=== PATIENT | male | born 1960 | race Caucasian/White ===

== ENCOUNTER 2018-02-11 08:03 | Emergency (ER) | payer MEDICAID, OTHER ==
[2018-02-11 09:12] LABS: ADD MAN DIFF? NO
[2018-02-11 09:30] LABS: ALANINE AMINOTRANSFERASE 30 IU/L (13-69); ALBUMIN 2.4 g/dl (3.3-4.9); ALBUMIN/GLOBULIN RATIO 0.57; ALKALINE PHOSPHATASE 213 IU/L (42-121); ANION GAP 8 (5-13); ASPARTATE AMINO TRANSFERASE 49 IU/L (15-46); BILIRUBIN,INDIRECT 0.6 mg/dl (0-1.1); BILIRUBIN,TOTAL 0.6 mg/dl (0.2-1.3); BLOOD UREA NITROGEN 10 mg/dl (7-20); CALCIUM 7.5 mg/dl (8.4-10.2); CARBON DIOXIDE 30 mmol/L (21-31); CHLORIDE 103 mmol/L (97-110); CREATININE 1.04 mg/dl (0.61-1.24); Estimated GFR > 60 mL/min (>60); GLUCOSE 129 mg/dl (70-220); LIPASE 171 U/L (23-300); SODIUM 141 mmol/L (135-144); TOTAL PROTEIN 6.6 g/dl (6.1-8.1)
[2018-02-11 09:32] LABS: WHITE BLOOD COUNT 4.3 10^3/ul (4.8-10.8)
[2018-02-11 09:32] LABS: BASOPHILS % 0.9 % (0.0-2.0); EOSINOPHILS # 0.1 10^3/ul (0.0-0.5); EOSINOPHILS % 3.3 % (0.0-7.0); HEMATOCRIT 29.9 % (42.0-52.0); HEMOGLOBIN 9.5 g/dl (14.0-18.0); LYMPHOCYTES # 1.6 10^3/ul (0.8-2.9); LYMPHOCYTES % 37.1 % (15.0-51.0); MEAN CORPUSCULAR HGB CONC 31.8 g/dl (32.0-37.0); MEAN CORPUSCULAR VOLUME 81.9 fl (82.0-101.0); MEAN PLATELET VOLUME 10.6 fl (7.4-10.4); MONOCYTE # 0.5 10^3/ul (0.3-0.9); NEUTROPHILS % 46.7 % (39.0-77.0); PLATELET COUNT 163 10^3/UL (140-415); RED BLOOD COUNT 3.65 10^6/ul (4.70-6.10); RED CELL DISTRIBUTION WIDTH 17.8 % (11.5-14.5)
[2018-02-11 09:44] LABS: POTASSIUM 2.9 mmol/L (3.5-5.1)
[2018-02-11 09:53] LABS: INR 1.36; PARTIAL THROMBOPLASTIN TIME 33.3 Sec (23.0-35.0); PT RATIO 1.3
[2018-02-11 11:15] LABS: MAGNESIUM 1.8 mg/dl (1.7-2.5)
[2018-02-11 11:41] LABS: OCCULT BLOOD STOOL NEGATIVE (NEGATIVE)
[2018-02-11] MEDS: POTASSIUM CHLORIDE 20 MEQ POWDER FOR ORAL SOLN PO (13:00)
[2018-02-11] MEDS: LIDOCAINE 1% (MPF) 5 ML VIAL (13:29)
[2018-02-11 14:21] LABS: FLD MN% 79.2 %; FLD PMN% 20.8 %; FLD RBC 0 /uL; FLD WBC 187 /cmm
[2018-02-11 14:38] LABS: FLUID AMYLASE < 30 U/L; FLUID TYPE ASCITES FLUID
[2018-02-11 14:39] LABS: FLUID GLUCOSE 103 mg/dl; FLUID LD 192 U/L; FLUID TOTAL PROTEIN < 2.0 g/dl; FLUID TYPE ASCITES FLUID; FLUID TYPE ASCITIES FLUID
[2018-02-11 14:45] LABS: FLD CLARITY SLIGHTLY HAZY; FLD COLOR YELLOW
[2018-02-11 14:45] LABS: FLD TYPE ASCITES
== END 2018-02-11 17:04 | disposition left against medical advice (07) ==
LOC: E/R 08:03
DX: R18.8 Other ascites (principal); E87.6 Hypokalemia; Z87.891 Personal history of nicotine dependence
CPT/HCPCS: 36415; 71045; 80053; 82150; 82270; 82945; 83615; 83690; 83735; 84157; 85025; 85610; 85730; 87070; 87075; 87102; 87116; 89051; 93005; 99285-25

== ENCOUNTER 2018-03-25 14:39 | Emergency (ER) | payer MEDICAID ==
[2018-03-25 16:23] LABS: ADD MAN DIFF? NO
[2018-03-25 16:26] LABS: WHITE BLOOD COUNT 5.6 10^3/ul (4.8-10.8)
[2018-03-25 16:26] LABS: BASOPHILS % 0.5 % (0.0-2.0); EOSINOPHILS # 0.2 10^3/ul (0.0-0.5); EOSINOPHILS % 4.3 % (0.0-7.0); HEMOGLOBIN 8.7 g/dl (14.0-18.0); LYMPHOCYTES # 1.8 10^3/ul (0.8-2.9); LYMPHOCYTES % 32.9 % (15.0-51.0); MEAN CORPUSCULAR HEMOGLOBIN 27.2 pg (29.0-33.0); MEAN CORPUSCULAR HGB CONC 32.2 g/dl (32.0-37.0); MEAN CORPUSCULAR VOLUME 84.4 fl (82.0-101.0); MEAN PLATELET VOLUME 9.9 fl (7.4-10.4); MONOCYTE # 0.7 10^3/ul (0.3-0.9); MONOCYTES % 13.3 % (0.0-11.0); NEUTROPHIL # 2.7 10^3/ul (1.6-7.5); NEUTROPHILS % 48.6 % (39.0-77.0); PLATELET COUNT 166 10^3/UL (140-415); RED CELL DISTRIBUTION WIDTH 17.9 % (11.5-14.5)
[2018-03-25 16:44] LABS: ADD UMIC YES; UR ASCORBIC ACID 40 mg/dL (NEGATIVE); UR BILIRUBIN (Dip) NEGATIVE (NEGATIVE); UR BLOOD (Dip) NEGATIVE (NEGATIVE); UR CLARITY SLIGHTLY CLOUDY (CLEAR); UR COLOR YELLOW (YELLOW); UR GLUCOSE (Dip) NEGATIVE (NEGATIVE); UR KETONES (Dip) NEGATIVE (NEGATIVE); UR LEUKOCYTE ESTERASE (Dip) TRACE Leu/ul (NEGATIVE); UR MUCUS FEW /HPF (NONE SEEN); UR NITRITE (Dip) NEGATIVE (NEGATIVE); UR RBC 1 /HPF (0-5); UR SPECIFIC GRAVITY (Dip) 1.023 (1.003-1.030); UR TOTAL PROTEIN (Dip) NEGATIVE (NEGATIVE); UR UROBILINOGEN (Dip) NEGATIVE (NEGATIVE); UR WBC 4 /HPF (0-5)
[2018-03-25 16:48] LABS: ALANINE AMINOTRANSFERASE 46 IU/L (13-69); ALBUMIN 2.3 g/dl (3.3-4.9); ALBUMIN/GLOBULIN RATIO 0.67; ALKALINE PHOSPHATASE 250 IU/L (42-121); ANION GAP 9 (5-13); ASPARTATE AMINO TRANSFERASE 86 IU/L (15-46); BILIRUBIN,INDIRECT 0.5 mg/dl (0-1.1); BILIRUBIN,TOTAL 0.5 mg/dl (0.2-1.3); BLOOD UREA NITROGEN 15 mg/dl (7-20); CALCIUM 7.5 mg/dl (8.4-10.2); CARBON DIOXIDE 20 mmol/L (21-31); CHLORIDE 109 mmol/L (97-110); CREATININE 1.16 mg/dl (0.61-1.24); Estimated GFR > 60 mL/min (>60); GLUCOSE 115 mg/dl (70-220); INR 1.33; LIPASE 141 U/L (23-300); PARTIAL THROMBOPLASTIN TIME 30.6 Sec (23.0-35.0); POTASSIUM 4.1 mmol/L (3.5-5.1); PROTIME 16.7 Sec (11.9-14.9); PT RATIO 1.3; SODIUM 138 mmol/L (135-144); TOTAL PROTEIN 5.7 g/dl (6.1-8.1)
== END 2018-03-25 16:45 | disposition home or self-care (01) ==
LOC: E/R 14:39
DX: R18.8 Other ascites (principal); R10.84 Generalized abdominal pain; I10 Essential (primary) hypertension; Z87.891 Personal history of nicotine dependence
CPT/HCPCS: 80053; 81001; 83690; 85025; 85610; 85730; 99283

== ENCOUNTER 2018-03-26 08:35 | Emergency (ER) | payer MEDICAID ==
[2018-03-26] MEDS: HYDROCODONE/APAP (10/325) TAB PO (11:43)
== END 2018-03-26 15:39 | disposition home or self-care (01) ==
LOC: E/R 08:35
DX: R18.8 Other ascites (principal); I10 Essential (primary) hypertension; Z87.891 Personal history of nicotine dependence
CPT/HCPCS: 99285-25; Z7502

== ENCOUNTER 2018-04-09 10:58 | Emergency (ER) | payer MEDICAID ==
[2018-04-09] MEDS ORDERED: LIDOCAINE 1%/EPI (1:100,000) (MDV) 20 ML (14:21)
== END 2018-04-09 13:19 | disposition home or self-care (01) ==
LOC: E/R 10:58
DX: K70.31 Alcoholic cirrhosis of liver with ascites (principal); I10 Essential (primary) hypertension; F17.210 Nicotine dependence, cigarettes, uncomplicated
CPT/HCPCS: 99285-25; Z7502

== ENCOUNTER 2018-04-11 12:34 | Emergency (ER) | payer MEDICAID ==
[2018-04-11] MEDS: LIDOCAINE 1% (MPF) 5 ML VIAL (17:02)
[2018-04-11 17:47] LABS: FLD MN% 89.6 %; FLD PMN% 10.4 %; FLD RBC 16000 /uL; FLD WBC 259 /cmm
[2018-04-11 18:04] LABS: FLD TYPE PARACENTHESIS
[2018-04-11 18:04] LABS: FLD CLARITY CLOUDY
== END 2018-04-11 18:20 | disposition home or self-care (01) ==
LOC: E/R 12:34
DX: R10.10 Upper abdominal pain, unspecified (principal); I10 Essential (primary) hypertension; Z87.891 Personal history of nicotine dependence
CPT/HCPCS: 87070; 87102; 87116; 89051; 99284-25

== ENCOUNTER 2018-04-16 11:24 | Emergency (ER) | payer MEDICAID ==
[2018-04-16] MEDS: LIDOCAINE 1% (MPF) 5 ML VIAL (15:51)
== END 2018-04-16 16:37 | disposition home or self-care (01) ==
LOC: E/R 11:24
DX: K70.31 Alcoholic cirrhosis of liver with ascites (principal); I10 Essential (primary) hypertension; Z87.891 Personal history of nicotine dependence
CPT/HCPCS: 99285-25; Z7502

== ENCOUNTER 2018-04-20 11:48 | Emergency (ER) | payer MEDICAID ==
[2018-04-20] MEDS ORDERED: LIDOCAINE 1% (MPF) 5 ML VIAL (13:30)
== END 2018-04-20 14:01 | disposition home or self-care (01) ==
LOC: FTE 11:48
DX: R18.8 Other ascites (principal); I10 Essential (primary) hypertension; Z87.891 Personal history of nicotine dependence
CPT/HCPCS: 99285-25; Z7502

== ENCOUNTER 2018-04-24 08:43 | Emergency (ER) | payer MEDICAID ==
[2018-04-24] MEDS: LIDOCAINE 1% (MPF) 5 ML VIAL (10:29)
== END 2018-04-24 11:13 | disposition home or self-care (01) ==
LOC: E/R 08:43
DX: R18.8 Other ascites (principal); F17.210 Nicotine dependence, cigarettes, uncomplicated
CPT/HCPCS: 99285-25; Z7502

== ENCOUNTER 2018-04-27 08:06 | Emergency (ER) | payer MEDICAID ==
[2018-04-27] MEDS: LIDOCAINE 1% (MPF) 5 ML VIAL (09:52)
== END 2018-04-27 10:41 | disposition home or self-care (01) ==
LOC: E/R 08:06
DX: R18.8 Other ascites (principal); R40.2142 Coma scale, eyes open, spontaneous, at arrival to emergency department; R40.2362 Coma scale, best motor response, obeys commands, at arrival to emergency department
CPT/HCPCS: 49083; 99285-25

== ENCOUNTER 2018-04-29 09:09 | Emergency (ER) | payer MEDICAID ==
[2018-04-29] MEDS: LIDOCAINE 1% (MPF) 5 ML VIAL (12:21)
== END 2018-04-29 15:48 | disposition left against medical advice (07) ==
LOC: E/R 09:09
DX: R18.8 Other ascites (principal); R40.2252 Coma scale, best verbal response, oriented, at arrival to emergency department; R40.2362 Coma scale, best motor response, obeys commands, at arrival to emergency department; R40.2142 Coma scale, eyes open, spontaneous, at arrival to emergency department
CPT/HCPCS: 49083; 99285-25

== ENCOUNTER 2018-05-02 10:13 | Emergency (ER) | payer MEDICAID | END 2018-05-02 13:00 | disposition left against medical advice (07) | LOC: FTE 10:13 | DX: Z48.01 Encounter for change or removal of surgical wound dressing (principal) | CPT/HCPCS: 99281; Z7502 ==

== ENCOUNTER 2018-05-04 12:07 | Emergency (ER) | payer MEDICAID ==
[2018-05-04] MEDS: LIDOCAINE 1% (MPF) 5 ML VIAL (15:12)
== END 2018-05-04 15:43 | disposition home or self-care (01) ==
LOC: E/R 15:43
DX: K70.31 Alcoholic cirrhosis of liver with ascites (principal); R40.2252 Coma scale, best verbal response, oriented, at arrival to emergency department; R40.2362 Coma scale, best motor response, obeys commands, at arrival to emergency department; R40.2142 Coma scale, eyes open, spontaneous, at arrival to emergency department
CPT/HCPCS: 49083; 99285-25

== ENCOUNTER 2018-05-08 12:42 | Emergency (ER) | payer MEDICAID ==
[2018-05-08 14:52] LABS: ADD MAN DIFF? NO
[2018-05-08 14:57] LABS: WHITE BLOOD COUNT 5.9 10^3/ul (4.8-10.8)
[2018-05-08 14:57] LABS: BASOPHIL # 0.1 10^3/ul (0.0-0.1); BASOPHILS % 0.9 % (0.0-2.0); EOSINOPHILS # 0.1 10^3/ul (0.0-0.5); EOSINOPHILS % 1.2 % (0.0-7.0); HEMATOCRIT 33.9 % (42.0-52.0); LYMPHOCYTES # 1.5 10^3/ul (0.8-2.9); LYMPHOCYTES % 25.3 % (15.0-51.0); MEAN CORPUSCULAR HEMOGLOBIN 25.5 pg (29.0-33.0); MEAN CORPUSCULAR HGB CONC 32.4 g/dl (32.0-37.0); MEAN CORPUSCULAR VOLUME 78.7 fl (82.0-101.0); MEAN PLATELET VOLUME 9.4 fl (7.4-10.4); MONOCYTE # 0.9 10^3/ul (0.3-0.9); MONOCYTES % 14.7 % (0.0-11.0); NEUTROPHIL # 3.4 10^3/ul (1.6-7.5); NEUTROPHILS % 57.6 % (39.0-77.0); PLATELET COUNT 174 10^3/UL (140-415); RED BLOOD COUNT 4.31 10^6/ul (4.70-6.10); RED CELL DISTRIBUTION WIDTH 19.5 % (11.5-14.5)
[2018-05-08 15:15] LABS: ALANINE AMINOTRANSFERASE 30 IU/L (13-69); ALBUMIN 3.3 g/dl (3.3-4.9); ALBUMIN/GLOBULIN RATIO 0.94; ALKALINE PHOSPHATASE 291 IU/L (42-121); ANION GAP 11 (5-13); ASPARTATE AMINO TRANSFERASE 50 IU/L (15-46); BILIRUBIN,INDIRECT 0.2 mg/dl (0-1.1); BILIRUBIN,TOTAL 0.2 mg/dl (0.2-1.3); BLOOD UREA NITROGEN 34 mg/dl (7-20); CALCIUM 8.1 mg/dl (8.4-10.2); CARBON DIOXIDE 19 mmol/L (21-31); CHLORIDE 100 mmol/L (97-110); CREATININE 1.49 mg/dl (0.61-1.24); Estimated GFR 49 mL/min (>60); GLUCOSE 143 mg/dl (70-220); LIPASE 288 U/L (23-300); POTASSIUM 5.1 mmol/L (3.5-5.1); SODIUM 130 mmol/L (135-144); TOTAL PROTEIN 6.8 g/dl (6.1-8.1)
[2018-05-08 15:16] LABS: INR 1.11; PROTIME 14.4 Sec (11.9-14.9); PT RATIO 1.1
[2018-05-08 15:17] LABS: PARTIAL THROMBOPLASTIN TIME 29.9 Sec (23.0-35.0)
[2018-05-08] MEDS: LIDOCAINE 1% (MPF) 5 ML VIAL (16:22)
== END 2018-05-08 16:28 | disposition home or self-care (01) ==
LOC: E/R 12:42
DX: R10.84 Generalized abdominal pain (principal); R18.8 Other ascites
CPT/HCPCS: 49083; 80053; 83690; 85025; 85610; 85730; 99285-25

== ENCOUNTER 2018-05-10 10:05 | Emergency (ER) | payer MEDICAID | END 2018-05-10 12:42 | disposition home or self-care (01) | LOC: E/R 10:05 | DX: R18.8 Other ascites (principal) | CPT/HCPCS: 76705; 99284-25 ==

== ENCOUNTER 2018-05-15 08:14 | Emergency (ER) | payer MEDICAID ==
[2018-05-15] MEDS: LIDOCAINE 1% (MPF) 5 ML VIAL (11:13)
== END 2018-05-15 11:58 | disposition home or self-care (01) ==
LOC: E/R 08:14
DX: R18.8 Other ascites (principal)
CPT/HCPCS: 49083; 99285-25

== ENCOUNTER 2018-05-19 08:43 | Emergency (ER) | payer MEDICAID ==
[2018-05-19] MEDS: LIDOCAINE 1% (MPF) 5 ML VIAL (10:03)
== END 2018-05-19 10:44 | disposition home or self-care (01) ==
LOC: E/R 08:43
DX: R18.8 Other ascites (principal)
CPT/HCPCS: 49083; 99285-25

== ENCOUNTER 2018-05-21 07:14 | Emergency (ER) | payer MEDICAID ==
[2018-05-21] MEDS: LIDOCAINE 1% (MPF) 5 ML VIAL (14:47)
== END 2018-05-21 15:03 | disposition home or self-care (01) ==
LOC: E/R 07:14
DX: K70.31 Alcoholic cirrhosis of liver with ascites (principal)
CPT/HCPCS: 49083; 99285-25

== ENCOUNTER 2018-05-24 10:03 | Emergency (ER) | payer MEDICAID | END 2018-05-24 13:06 | disposition home or self-care (01) | LOC: E/R 10:03 | DX: R18.8 Other ascites (principal) | CPT/HCPCS: 49083; 99285-25 ==

== ENCOUNTER 2018-05-27 12:33 | Emergency (ER) | payer MEDICAID | END 2018-05-27 17:48 | disposition left against medical advice (07) | LOC: E/R 12:33 | DX: R18.8 Other ascites (principal) | CPT/HCPCS: 99282; Z7502 ==

== ENCOUNTER 2018-06-05 10:40 | Emergency (ER) | payer MEDICAID ==
[2018-06-05] MEDS: LIDOCAINE 1% (MPF) 5 ML VIAL (12:31)
== END 2018-06-05 13:00 | disposition home or self-care (01) ==
LOC: E/R 10:40
DX: R18.8 Other ascites (principal)
CPT/HCPCS: 99285-25; Z7610

== ENCOUNTER 2018-06-26 09:17 | Emergency (ER) | payer MEDICAID ==
[2018-06-26 13:43] LABS: ADD MAN DIFF? NO
[2018-06-26 13:47] LABS: WHITE BLOOD COUNT 5.5 10^3/ul (4.8-10.8)
[2018-06-26 13:47] LABS: BASOPHILS % 0.5 % (0.0-2.0); EOSINOPHILS # 0.1 10^3/ul (0.0-0.5); EOSINOPHILS % 1.1 % (0.0-7.0); HEMATOCRIT 35.9 % (42.0-52.0); HEMOGLOBIN 11.2 g/dl (14.0-18.0); LYMPHOCYTES # 1.2 10^3/ul (0.8-2.9); LYMPHOCYTES % 22.5 % (15.0-51.0); MEAN CORPUSCULAR HGB CONC 31.2 g/dl (32.0-37.0); MEAN PLATELET VOLUME 9.6 fl (7.4-10.4); MONOCYTE # 0.7 10^3/ul (0.3-0.9); MONOCYTES % 12.4 % (0.0-11.0); NEUTROPHIL # 3.5 10^3/ul (1.6-7.5); NEUTROPHILS % 63.3 % (39.0-77.0); PLATELET COUNT 188 10^3/UL (140-415); RED BLOOD COUNT 4.66 10^6/ul (4.70-6.10); RED CELL DISTRIBUTION WIDTH 19.3 % (11.5-14.5)
[2018-06-26 14:04] LABS: ALANINE AMINOTRANSFERASE 24 IU/L (13-69); ALBUMIN 2.7 g/dl (3.3-4.9); ALBUMIN/GLOBULIN RATIO 0.72; ALKALINE PHOSPHATASE 291 IU/L (42-121); ANION GAP 9 (5-13); ASPARTATE AMINO TRANSFERASE 41 IU/L (15-46); BILIRUBIN,INDIRECT 0.3 mg/dl (0-1.1); BILIRUBIN,TOTAL 0.3 mg/dl (0.2-1.3); BLOOD UREA NITROGEN 33 mg/dl (7-20); CALCIUM 8.3 mg/dl (8.4-10.2); CARBON DIOXIDE 22 mmol/L (21-31); CHLORIDE 99 mmol/L (97-110); CREATININE 1.35 mg/dl (0.61-1.24); Estimated GFR 54 mL/min (>60); GLUCOSE 136 mg/dl (70-220); INR 1.07; POTASSIUM 5.2 mmol/L (3.5-5.1); PT RATIO 1.1; SODIUM 130 mmol/L (135-144); TOTAL PROTEIN 6.4 g/dl (6.1-8.1)
[2018-06-26 14:05] LABS: PARTIAL THROMBOPLASTIN TIME 29.7 Sec (23.0-35.0)
[2018-06-26] MEDS: LIDOCAINE 1% (MPF) 5 ML VIAL (16:03)
== END 2018-06-26 16:11 | disposition home or self-care (01) ==
LOC: E/R 09:17
DX: R18.8 Other ascites (principal)
CPT/HCPCS: 80053; 85025; 85610; 85730; 99285-25

== ENCOUNTER 2018-07-02 08:16 | Emergency (ER) | payer MEDICAID ==
[2018-07-02] MEDS: LIDOCAINE 1% (MPF) 5 ML VIAL (12:19)
== END 2018-07-02 12:25 | disposition home or self-care (01) ==
LOC: E/R 08:16
DX: K70.31 Alcoholic cirrhosis of liver with ascites (principal)
CPT/HCPCS: 99285-25; Z7502

== ENCOUNTER 2018-07-09 09:42 | Emergency (ER) | payer MEDICAID ==
[2018-07-09] MEDS ORDERED: LIDOCAINE 1% (MPF) 5 ML VIAL (14:49)
== END 2018-07-09 14:50 | disposition left against medical advice (07) ==
LOC: E/R 09:42
DX: K70.31 Alcoholic cirrhosis of liver with ascites (principal)
CPT/HCPCS: 99285-25; Z7502

== ENCOUNTER 2018-07-16 08:48 | Emergency (ER) | payer MEDICAID | END 2018-07-16 11:16 | disposition home or self-care (01) | LOC: E/R 08:48 | DX: K70.31 Alcoholic cirrhosis of liver with ascites (principal); K42.9 Umbilical hernia without obstruction or gangrene; Y84.4 Aspiration of fluid as the cause of abnormal reaction of the patient, or of later complication, without mention of misadventure at the time of the procedure; Z87.891 Personal history of nicotine dependence | CPT/HCPCS: 99285-25; Z7502 ==

== ENCOUNTER 2018-07-23 09:21 | Emergency (ER) | payer MEDICAID ==
[2018-07-23 10:18] LABS: ADD MAN DIFF? NO
[2018-07-23 10:19] LABS: WHITE BLOOD COUNT 5.3 10^3/ul (4.8-10.8)
[2018-07-23 10:19] LABS: BASOPHILS % 0.6 % (0.0-2.0); EOSINOPHILS # 0.1 10^3/ul (0.0-0.5); EOSINOPHILS % 1.5 % (0.0-7.0); HEMATOCRIT 33.7 % (42.0-52.0); HEMOGLOBIN 10.7 g/dl (14.0-18.0); LYMPHOCYTES # 1.3 10^3/ul (0.8-2.9); LYMPHOCYTES % 24.4 % (15.0-51.0); MEAN CORPUSCULAR HEMOGLOBIN 25.3 pg (29.0-33.0); MEAN CORPUSCULAR HGB CONC 31.8 g/dl (32.0-37.0); MEAN CORPUSCULAR VOLUME 79.7 fl (82.0-101.0); MEAN PLATELET VOLUME 9.6 fl (7.4-10.4); MONOCYTE # 0.9 10^3/ul (0.3-0.9); MONOCYTES % 16.5 % (0.0-11.0); NEUTROPHILS % 56.8 % (39.0-77.0); PLATELET COUNT 154 10^3/UL (140-415); RED BLOOD COUNT 4.23 10^6/ul (4.70-6.10); RED CELL DISTRIBUTION WIDTH 20.6 % (11.5-14.5)
[2018-07-23 10:39] LABS: INR 1.17; PT RATIO 1.2
[2018-07-23 10:40] LABS: PARTIAL THROMBOPLASTIN TIME 30.9 Sec (23.0-35.0)
[2018-07-23] MEDS: LIDOCAINE 1% (MPF) 5 ML VIAL (12:05)
== END 2018-07-23 12:19 | disposition home or self-care (01) ==
LOC: E/R 09:21
DX: K74.60 Unspecified cirrhosis of liver (principal); R18.8 Other ascites; Z87.891 Personal history of nicotine dependence
CPT/HCPCS: 36415; 85025; 85610; 85730; 99285-25

== ENCOUNTER 2018-08-05 08:43 | Emergency (ER) | payer MEDICAID ==
[2018-08-05] MEDS: LIDOCAINE 1% (MPF) 5 ML VIAL (12:59)
== END 2018-08-05 14:33 | disposition home or self-care (01) ==
LOC: E/R 08:43
DX: R18.8 Other ascites (principal); Z87.891 Personal history of nicotine dependence
CPT/HCPCS: 99285-25; Z7502

== ENCOUNTER 2018-08-15 09:53 | Emergency (ER) | payer MEDICAID ==
[2018-08-15] MEDS: LIDOCAINE 1% (MPF) 5 ML VIAL (12:31)
== END 2018-08-15 13:25 | disposition left against medical advice (07) ==
LOC: E/R 13:25
DX: R18.8 Other ascites (principal); Z87.891 Personal history of nicotine dependence
CPT/HCPCS: 99285-25; Z7502

== ENCOUNTER 2018-08-26 09:27 | Emergency (ER) | payer MEDICAID ==
[2018-08-26] MEDS: LIDOCAINE 1% (MPF) 5 ML VIAL (14:22)
== END 2018-08-26 12:25 | disposition home or self-care (01) ==
LOC: E/R 09:27
DX: K70.31 Alcoholic cirrhosis of liver with ascites (principal); Z87.891 Personal history of nicotine dependence
CPT/HCPCS: 99285-25; Z7502

== ENCOUNTER 2018-10-01 09:44 | Emergency (ER) | payer MEDICAID ==
[2018-10-01 12:08] LABS: ADD MAN DIFF? NO
[2018-10-01 12:16] LABS: BASOPHILS % 0.8 % (0.0-2.0); EOSINOPHILS # 0.1 10^3/ul (0.0-0.5); EOSINOPHILS % 1.9 % (0.0-7.0); HEMATOCRIT 39.2 % (42.0-52.0); HEMOGLOBIN 12.5 g/dl (14.0-18.0); LYMPHOCYTES # 1.8 10^3/ul (0.8-2.9); LYMPHOCYTES % 33.7 % (15.0-51.0); MEAN CORPUSCULAR HEMOGLOBIN 27.2 pg (29.0-33.0); MEAN CORPUSCULAR HGB CONC 31.9 g/dl (32.0-37.0); MEAN CORPUSCULAR VOLUME 85.2 fl (82.0-101.0); MEAN PLATELET VOLUME 10.2 fl (7.4-10.4); MONOCYTE # 0.6 10^3/ul (0.3-0.9); MONOCYTES % 11.9 % (0.0-11.0); NEUTROPHIL # 2.7 10^3/ul (1.6-7.5); NEUTROPHILS % 51.5 % (39.0-77.0); PLATELET COUNT 207 10^3/UL (140-415); RED CELL DISTRIBUTION WIDTH 16.4 % (11.5-14.5)
[2018-10-01 12:16] LABS: WHITE BLOOD COUNT 5.3 10^3/ul (4.8-10.8)
[2018-10-01 12:27] LABS: ALANINE AMINOTRANSFERASE 20 IU/L (13-69); ALBUMIN 3.1 g/dl (3.3-4.9); ALBUMIN/GLOBULIN RATIO 0.88; ALKALINE PHOSPHATASE 183 IU/L (42-121); ANION GAP 5 (5-13); ASPARTATE AMINO TRANSFERASE 39 IU/L (15-46); BILIRUBIN,INDIRECT 0.7 mg/dl (0-1.1); BILIRUBIN,TOTAL 0.7 mg/dl (0.2-1.3); BLOOD UREA NITROGEN 17 mg/dl (7-20); CALCIUM 8.5 mg/dl (8.4-10.2); CARBON DIOXIDE 27 mmol/L (21-31); CHLORIDE 104 mmol/L (97-110); CREATININE 1.16 mg/dl (0.61-1.24); Estimated GFR > 60 mL/min (>60); GLUCOSE 97 mg/dl (70-220); POTASSIUM 3.8 mmol/L (3.5-5.1); SODIUM 136 mmol/L (135-144); TOTAL PROTEIN 6.6 g/dl (6.1-8.1)
[2018-10-01 12:41] LABS: INR 1.03; PARTIAL THROMBOPLASTIN TIME 29.4 Sec (23.0-35.0); PROTIME 13.6 Sec (11.9-14.9); PT RATIO 1.1
[2018-10-01] MEDS: LIDOCAINE 1% (MPF) 5 ML VIAL (14:53)
== END 2018-10-01 15:18 | disposition left against medical advice (07) ==
LOC: E/R 09:44
DX: K70.31 Alcoholic cirrhosis of liver with ascites (principal); Z21 Asymptomatic human immunodeficiency virus [HIV] infection status
CPT/HCPCS: 80053; 85025; 85610; 85730; 99285-25

== ENCOUNTER 2018-10-03 09:22 | Emergency (ER) | payer MEDICAID ==
[2018-10-03] MEDS: LIDOCAINE 1% (MPF) 5 ML VIAL (11:37)
== END 2018-10-03 11:39 | disposition home or self-care (01) ==
LOC: E/R 09:22
DX: K70.31 Alcoholic cirrhosis of liver with ascites (principal); Z21 Asymptomatic human immunodeficiency virus [HIV] infection status
CPT/HCPCS: 99285-25; Z7502

== ENCOUNTER 2018-10-06 15:12 | Emergency (ER) | payer MEDICAID | END 2018-10-06 16:55 | disposition left against medical advice (07) | LOC: FTE 15:12 | DX: R18.8 Other ascites (principal) | CPT/HCPCS: 99282; Z7502 ==

== ENCOUNTER 2018-10-24 08:44 | Emergency (ER) | payer MEDICAID ==
[2018-10-24] MEDS: LIDOCAINE 1% (MPF) 5 ML VIAL (09:51)
== END 2018-10-24 11:52 | disposition home or self-care (01) ==
LOC: E/R 08:44
DX: R18.8 Other ascites (principal); R10.84 Generalized abdominal pain; Z21 Asymptomatic human immunodeficiency virus [HIV] infection status
CPT/HCPCS: 99285-25; Z7502

== ENCOUNTER 2018-10-30 08:46 | Emergency (ER) | payer MEDICAID ==
[2018-10-30 09:48] LABS: ADD MAN DIFF? NO
[2018-10-30 09:56] LABS: BASOPHIL # 0.1 10^3/ul (0.0-0.1); BASOPHILS % 0.9 % (0.0-2.0); EOSINOPHILS # 0.1 10^3/ul (0.0-0.5); EOSINOPHILS % 1.1 % (0.0-7.0); HEMATOCRIT 33.3 % (42.0-52.0); LYMPHOCYTES # 1.5 10^3/ul (0.8-2.9); MEAN CORPUSCULAR HEMOGLOBIN 27.9 pg (29.0-33.0); MEAN CORPUSCULAR VOLUME 84.5 fl (82.0-101.0); MEAN PLATELET VOLUME 10.4 fl (7.4-10.4); MONOCYTE # 0.7 10^3/ul (0.3-0.9); MONOCYTES % 12.4 % (0.0-11.0); NEUTROPHIL # 3.3 10^3/ul (1.6-7.5); NEUTROPHILS % 59.4 % (39.0-77.0); PLATELET COUNT 218 10^3/UL (140-415); RED BLOOD COUNT 3.94 10^6/ul (4.70-6.10); RED CELL DISTRIBUTION WIDTH 16.1 % (11.5-14.5)
[2018-10-30 09:56] LABS: WHITE BLOOD COUNT 5.6 10^3/ul (4.8-10.8)
[2018-10-30 10:10] LABS: INR 1.02; PARTIAL THROMBOPLASTIN TIME 30.2 Sec (23.0-35.0); PROTIME 13.5 Sec (11.9-14.9); PT RATIO 1.1
[2018-10-30 10:17] LABS: ALANINE AMINOTRANSFERASE 24 IU/L (13-69); ALBUMIN/GLOBULIN RATIO 0.81; ALKALINE PHOSPHATASE 231 IU/L (42-121); ANION GAP 7 (5-13); ASPARTATE AMINO TRANSFERASE 42 IU/L (15-46); BILIRUBIN,INDIRECT 0.6 mg/dl (0-1.1); BILIRUBIN,TOTAL 0.6 mg/dl (0.2-1.3); BLOOD UREA NITROGEN 8 mg/dl (7-20); CALCIUM 8.2 mg/dl (8.4-10.2); CARBON DIOXIDE 24 mmol/L (21-31); CHLORIDE 107 mmol/L (97-110); CREATININE 0.89 mg/dl (0.61-1.24); Estimated GFR > 60 mL/min (>60); GLUCOSE 100 mg/dl (70-220); POTASSIUM 4.1 mmol/L (3.5-5.1); SODIUM 138 mmol/L (135-144); TOTAL PROTEIN 6.7 g/dl (6.1-8.1)
[2018-10-30] MEDS: LIDOCAINE 1% (MPF) 5 ML VIAL (13:25)
== END 2018-10-30 13:30 | disposition left against medical advice (07) ==
LOC: E/R 08:46
DX: K70.31 Alcoholic cirrhosis of liver with ascites (principal); Z21 Asymptomatic human immunodeficiency virus [HIV] infection status
CPT/HCPCS: 36415; 80053; 85025; 85610; 85730; 99285-25

== ENCOUNTER 2018-11-10 07:03 | Emergency (ER) | payer MEDICAID ==
[2018-11-10] MEDS: ONDANSETRON 4 MG INJ IV (08:20)
[2018-11-10] MEDS: SOD CHLORIDE 0.9% 1,000 ML IV (08:20)
[2018-11-10] MEDS: KETOROLAC 15 MG INJ IV (08:20)
[2018-11-10 08:25] LABS: ADD MAN DIFF? NO
[2018-11-10 08:30] LABS: WHITE BLOOD COUNT 4.5 10^3/ul (4.8-10.8)
[2018-11-10 08:30] LABS: BASOPHILS % 0.4 % (0.0-2.0); EOSINOPHILS % 0.7 % (0.0-7.0); HEMATOCRIT 28.8 % (42.0-52.0); HEMOGLOBIN 9.4 g/dl (14.0-18.0); LYMPHOCYTES # 0.9 10^3/ul (0.8-2.9); LYMPHOCYTES % 20.1 % (15.0-51.0); MEAN CORPUSCULAR HEMOGLOBIN 28.2 pg (29.0-33.0); MEAN CORPUSCULAR HGB CONC 32.6 g/dl (32.0-37.0); MEAN CORPUSCULAR VOLUME 86.5 fl (82.0-101.0); MEAN PLATELET VOLUME 9.4 fl (7.4-10.4); MONOCYTE # 0.5 10^3/ul (0.3-0.9); MONOCYTES % 11.9 % (0.0-11.0); NEUTROPHILS % 66.7 % (39.0-77.0); PLATELET COUNT 131 10^3/UL (140-415); RED BLOOD COUNT 3.33 10^6/ul (4.70-6.10); RED CELL DISTRIBUTION WIDTH 16.7 % (11.5-14.5)
[2018-11-10 08:50] LABS: INR 1.18; PROTIME 15.1 Sec (11.9-14.9); PT RATIO 1.2
[2018-11-10 08:51] LABS: ALANINE AMINOTRANSFERASE 23 IU/L (13-69); ALBUMIN 2.9 g/dl (3.3-4.9); ALBUMIN/GLOBULIN RATIO 0.82; ALKALINE PHOSPHATASE 151 IU/L (42-121); ANION GAP 7 (5-13); ASPARTATE AMINO TRANSFERASE 45 IU/L (15-46); BILIRUBIN,INDIRECT 0.9 mg/dl (0-1.1); BILIRUBIN,TOTAL 0.9 mg/dl (0.2-1.3); BLOOD UREA NITROGEN 22 mg/dl (7-20); CALCIUM 8.3 mg/dl (8.4-10.2); CARBON DIOXIDE 27 mmol/L (21-31); CHLORIDE 108 mmol/L (97-110); CREATININE 0.91 mg/dl (0.61-1.24); Estimated GFR > 60 mL/min (>60); GLUCOSE 106 mg/dl (70-220); LIPASE 99 U/L (23-300); PARTIAL THROMBOPLASTIN TIME 30.2 Sec (23.0-35.0); POTASSIUM 3.6 mmol/L (3.5-5.1); SODIUM 142 mmol/L (135-144); TOTAL PROTEIN 6.4 g/dl (6.1-8.1)
[2018-11-10 08:53] LABS: AMMONIA < 9 umol/l (9-30)
[2018-11-10 08:53] LABS: ADD UMIC NO; UR ASCORBIC ACID NEGATIVE (NEGATIVE); UR BILIRUBIN (Dip) NEGATIVE (NEGATIVE); UR BLOOD (Dip) NEGATIVE (NEGATIVE); UR CLARITY CLEAR (CLEAR); UR COLOR YELLOW (YELLOW); UR GLUCOSE (Dip) NEGATIVE (NEGATIVE); UR KETONES (Dip) TRACE mg/dL (NEGATIVE); UR LEUKOCYTE ESTERASE (Dip) NEGATIVE Leu/ul (NEGATIVE); UR NITRITE (Dip) NEGATIVE (NEGATIVE); UR SPECIFIC GRAVITY (Dip) 1.019 (1.003-1.030); UR TOTAL PROTEIN (Dip) NEGATIVE (NEGATIVE); UR UROBILINOGEN (Dip) NEGATIVE (NEGATIVE)
[2018-11-10 09:04] LABS: TROPONIN-I < 0.012 ng/ml (0.000-0.120)
[2018-11-10] MEDS: LIDOCAINE 1% (MPF) 5 ML VIAL (14:42)
== END 2018-11-10 15:35 | disposition left against medical advice (07) ==
LOC: E/R 07:03
DX: K70.31 Alcoholic cirrhosis of liver with ascites (principal); K62.5 Hemorrhage of anus and rectum; R11.2 Nausea with vomiting, unspecified; I10 Essential (primary) hypertension; Z21 Asymptomatic human immunodeficiency virus [HIV] infection status
CPT/HCPCS: 71045; 80053; 81003; 82140; 83690; 84484; 85025; 85610; 85730; 86850; 86900; 86901; 87040-91; 87086; 96374; 96375; 99285-25